=== PATIENT | female | born 1945 | race Caucasian/White ===

== ENCOUNTER 2016-07-18 13:21 | Outpatient (RCR) | payer MEDICARE, MEDICAID ==
--- OUTSIDE RECORDS SUMMARY | 2016-04-24 10:22 | XMS REPORT | Continuity of Care Document ---
Author Author [facility] Organization [facility] Address Unknown Phone Unavailable Care Team Providers Care Sports Recruiter Name Role Phone Self, Referral PCP Unavailable Source Comments Some departments are not documenting in the electronic medical record. If you do not see the information that you expected, contact Release of Information in the Health Information Management department at [phone] for further assistance in locating additional records.[facility] Active Allergies and Adverse Reactions Allergen Noted Date Severity Reactions Comments Hydrocodone 07/05/2011 ITCHING Pcn 07/05/2011 SEE COMMENTS unknown Current Medications Prescription Sig. Disp. Refills Start End Date Status Date prasugrel (EFFIENT) 10 mg Take 10 mg by mouth Active Tab tablet daily. famotidine (PEPCID) 20 mg Take 20 mg by mouth as Active tablet Needed. PREDNISONE PO Take 1 mg by mouth as Active Needed. Prn for itching LEVOTHYROXINE SODIUM Take 125 mg by mouth Active (SYNTHROID PO) daily. nortriptyline (PAMELOR) Take 10 mg by mouth at Active 10 mg capsule bedtime daily. DULOXETINE HCL (CYMBALTA Take 60 mg by mouth Active PO) daily. metFORMIN (GLUCOPHAGE) Take 500 mg by mouth Active 500 mg tablet twice daily. promethazine (PHENERGAN) Insert or Apply 25 mg to Active 25 mg rectal suppository rectal area as directed every 6 hours as needed. nitroglycerin (NITROSTAT) Place 0.3 mg under tongue Active 0.3 mg tablet every 5 minutes as needed. Active Problems Problem Noted Date Recurrent oral ulcers 07/05/2011 Rhinitis, chronic 07/05/2011 Leukemia chronic 07/05/2011 Social History Tobacco Use Types Packs/Day Years Used Date Former Smoker Quit: 05/08/1992 Smokeless Tobacco: Never Used Last Filed Vital Signs Vital Sign Reading Time Taken Blood Pressure 135/72 07/05/2011 1:55 PM RIBBON WINDER Pulse 99 07/05/2011 1:55 PM RIBBON WINDER Temperature 36.3 C (97.3 F) 07/05/2011 1:55 PM RIBBON WINDER Respiratory Rate - - Height 1.676 m (5' 6") 07/05/2011 1:55 PM RIBBON WINDER Weight 86.637 kg (191 lb) 07/05/2011 1:55 PM RIBBON WINDER Body Mass Index 30.84 07/05/2011 1:55 PM RIBBON WINDER Oxygen Saturation - - Plan of Care Health Maintenance Due Date Last Done Comments Physical (Comprehensive) 1953 Exam Pertussis Vaccine 1957 Tetanus Vaccine 1963 Breast Cancer Screening 1986 Colorectal Cancer 1996 Screening Shingles Vaccine 2006 Osteoporosis Screening 2011 Prevnar/Pneumovax (#1) 2011 Influenza Vaccine 03/08/2016 Results from Last 3 Months Not on file
[2016-04-24 10:55] LABS: BASOPHILS % (AUTO) 0 % (0-10); EOSINOPHILS # (AUTO) 0.2 10^3/uL (0.0-0.3); EOSINOPHILS % (AUTO) 3 % (0-10); LYMPHOCYTES # (AUTO) 3.8 X 10^3 (1.0-4.0); LYMPHOCYTES % (AUTO) 65 % (12-44); MEAN CORPUSCULAR HEMOGLOBIN 33 PG (25-34); MEAN CORPUSCULAR HGB CONC 34 G/DL (32-36); MEAN CORPUSCULAR VOLUME 99 FL (80-99); MEAN PLATELET VOLUME 7.9 FL (7.4-10.4); MONOCYTES # (AUTO) 0.6 X 10^3 (0.0-1.0); MONOCYTES % (AUTO) 10 % (0-12); NEUTROPHILS # (AUTO) 1.2 X 10^3 (1.8-7.8); NEUTROPHILS % (AUTO) 22 % (42-75); PLATELET COUNT 275 10^3/uL (130-400); RED BLOOD COUNT 3.37 10^6/uL (4.35-5.85); RED CELL DISTRIBUTION WIDTH 14.8 % (10.0-14.5); WHITE BLOOD COUNT 5.7 10^3/uL (4.3-11.0)
[2016-04-24 11:23] LABS: ALANINE AMINOTRANSFERASE 14 U/L (0-55); ALBUMIN 3.4 G/DL (3.2-4.5); ANION GAP 9 MMOL/L (5-14); ASPARTATE AMINO TRANSFERASE 12 U/L (5-34); BILIRUBIN,TOTAL 0.5 MG/DL (0.1-1.0); BLOOD UREA NITROGEN 14 MG/DL (7-18); BUN/CREATININE RATIO 19; CALCIUM 8.8 MG/DL (8.5-10.1); CARBON DIOXIDE 29 MMOL/L (21-32); CHLORIDE 102 MMOL/L (98-107); CREATININE SERUM 0.74 MG/DL (0.60-1.30); GFR ESTIMATED > 60; GLUCOSE 117 MG/DL (70-105); POTASSIUM 3.8 MMOL/L (3.6-5.0); SODIUM 140 MMOL/L (135-145); TOTAL PROTEIN 5.5 G/DL (6.4-8.2)
[2016-04-25 01:48] LABS: IMMUNOGLOBULIN IGA 26 mg/dL (71-263); IMMUNOGLOBULIN IGG 907 mg/dL (672-1680)
[2016-04-25 08:10] LABS: IMMUNOGLOBULIN IGM 17 mg/dL (47-209)
[2016-05-22 13:28] LABS: BASOPHILS % (AUTO) 1 % (0-10); EOSINOPHILS # (AUTO) 0.1 10^3/uL (0.0-0.3); EOSINOPHILS % (AUTO) 2 % (0-10); LYMPHOCYTES # (AUTO) 2.8 X 10^3 (1.0-4.0); LYMPHOCYTES % (AUTO) 80 % (12-44); MEAN CORPUSCULAR HEMOGLOBIN 34 PG (25-34); MEAN CORPUSCULAR HGB CONC 34 G/DL (32-36); MEAN CORPUSCULAR VOLUME 100 FL (80-99); MEAN PLATELET VOLUME 7.8 FL (7.4-10.4); MONOCYTES # (AUTO) 0.3 X 10^3 (0.0-1.0); MONOCYTES % (AUTO) 8 % (0-12); NEUTROPHILS # (AUTO) 0.4 X 10^3 (1.8-7.8); NEUTROPHILS % (AUTO) 10 % (42-75); PLATELET COUNT 264 10^3/uL (130-400); RED BLOOD COUNT 2.77 10^6/uL (4.35-5.85); RED CELL DISTRIBUTION WIDTH 16.3 % (10.0-14.5); WHITE BLOOD COUNT 3.6 10^3/uL (4.3-11.0)
[2016-05-22 13:57] LABS: ALANINE AMINOTRANSFERASE 12 U/L (0-55); ALBUMIN 3.1 G/DL (3.2-4.5); ANION GAP 6 MMOL/L (5-14); ASPARTATE AMINO TRANSFERASE 14 U/L (5-34); BILIRUBIN,TOTAL 0.4 MG/DL (0.1-1.0); BLOOD UREA NITROGEN 10 MG/DL (7-18); BUN/CREATININE RATIO 12; CARBON DIOXIDE 28 MMOL/L (21-32); CHLORIDE 102 MMOL/L (98-107); CREATININE SERUM 0.81 MG/DL (0.60-1.30); GFR ESTIMATED > 60; GLUCOSE 175 MG/DL (70-105); POTASSIUM 3.7 MMOL/L (3.6-5.0); SODIUM 136 MMOL/L (135-145); TOTAL PROTEIN 5.9 G/DL (6.4-8.2)
[2016-06-19 13:22] LABS: BASOPHILS % (AUTO) 0 % (0-10); EOSINOPHILS # (AUTO) 0.1 10^3/uL (0.0-0.3); EOSINOPHILS % (AUTO) 2 % (0-10); LYMPHOCYTES # (AUTO) 3.2 X 10^3 (1.0-4.0); LYMPHOCYTES % (AUTO) 67 % (12-44); MEAN CORPUSCULAR HEMOGLOBIN 34 PG (25-34); MEAN CORPUSCULAR HGB CONC 33 G/DL (32-36); MEAN CORPUSCULAR VOLUME 103 FL (80-99); MEAN PLATELET VOLUME 8.1 FL (7.4-10.4); MONOCYTES # (AUTO) 0.4 X 10^3 (0.0-1.0); MONOCYTES % (AUTO) 9 % (0-12); NEUTROPHILS % (AUTO) 21 % (42-75); PLATELET COUNT 249 10^3/uL (130-400); RED BLOOD COUNT 3.12 10^6/uL (4.35-5.85); RED CELL DISTRIBUTION WIDTH 16.9 % (10.0-14.5); WHITE BLOOD COUNT 4.7 10^3/uL (4.3-11.0)
[2016-06-19 13:47] LABS: ALBUMIN 3.6 G/DL (3.2-4.5); BILIRUBIN,TOTAL 0.5 MG/DL (0.1-1.0); CALCIUM 8.2 MG/DL (8.5-10.1); CREATININE SERUM 0.93 MG/DL (0.60-1.30); POTASSIUM 4.3 MMOL/L (3.6-5.0); TOTAL PROTEIN 5.6 G/DL (6.4-8.2)
[2016-06-20 04:04] LABS: IMMUNOGLOBULIN IGA 22 mg/dL (71-263); IMMUNOGLOBULIN IGG 968 mg/dL (672-1680)
[2016-06-20 06:30] LABS: IMMUNOGLOBULIN IGM 13 mg/dL (47-209)
[~2016-07-18 13:21] MED LIST: AC325T PO; AC500T PO; ACET-461 PO; ACETAMINOPHEN 325 MG TABLET/CAPLET (TYLENOL) PO SCH; ACETAMINOPHEN 500 MG TAB (TYLENOL) CANCER CTR ONE; ACID1TAB PO; ACYC-108 PO; ACYC800T PO; ACYCLOVIR 200 MG PO; ALPR0.25 PO; ALPR1TAB7 PO; ALPR2TAB6 PO; ALTEPLASE 2 MG (CATHFLO) CANCER CENTER IV ONE; ASP325T NG; ASP325T PO; ASP325TEC PO; ASP81TEC PO; ASPI-266 PO; ASPI-808 PO; ATOR20TA66 PO; ATOR40TA PO; ATOR40TA70 PO; ATR20T PO; BUPR300T51 PO; CEFD300C3 PO; CETI10TA17 PO; CITA20TA4 PO; CLOP75TA PO; CODE-54 PO; CYCL10TA9 PO; DEXL60CA5 PO; DIPH25TA29 PO; DIPH50CA33 PO; DONE10TA41 PO; DULO30CA PO; DULO60CA58 PO; DULO60CA6 PO; EST45C VG; FAMO20TA5 PO; FLT05NA16 NSEACH; FLUT16SP22 NS; FNT100TD TD; FNT25TD TD; FURO40TA4 PO; HYDR-2890 PO; HYDR-700 PO; IBAN150T5 PO; IBAN150T8 PO; IMMU GLOBULIN,GAMMA (IGG) 100 ML IV SCH; IMMUNE GLOBULIN,GAMMA (IGG) 200 ML IV SCH; INSU100I29 SC; INSU100V5 SQ; IPRA15SP2 NS; IPRA15SP2 NSEACH; IPRA3AMP11 INH; ISM30TCR PO; IVIG 10 GM (PRIVIGEN) CANCER C 100 ML IV SCH; IVIG 20 GM (PRIVIGEN) CANCER C 200 ML IV SCH; LACT1CAP62 PO; LAMO100T PO; LEVE1U SQ; LEVO125T PO; LEVO125T6 PO; LEVO175T5 PO; LINA5TAB PO; LISI10TA2 PO; LISI2.5T PO; LORA1TAB PO; LRZ1T PO; LVT.05T PO; MAGN-47 PO; MECL-106 PO; MEDIHONEY WOUND TOP; MELO-195 PO; METO-272 PO; METO25TA2 PO; MTF500T PO; MTP100TCR PO; NABU750T PO; NFIPRATRNS NS; NITR0.3T6 SL; NITR100C3 PO; NITR12SP6 SL; NITR12SP6 TL; NORT25CA PO; NYST15CR3 TP; OXYB30GE TD; OXYC-12 PO; OXYC-188 PO; PNT40TEC PO; PRAS10TA6 PO; PRD1T PO; PRM25T PO; PROP1TAB77 PO; SCR1T PO; TEMA30CA PO; TEMA30CA6 PO; TRAM-21 PO; TRAM1TAB7 PO; TRAM50TA2 PO; WRF5T PO; [UNRECOGNIZED DRUG - CODE] PO; [UNRECOGNIZED DRUG - OTHER]; [UNRECOGNIZED DRUG - OTHER] OU; diphenhydrAMINE 25 MG TAB (BENADRYL) CANCER CENTER PO ONE; diphenhydrAMINE 25 MG TAB (BENADRYL) PO SCH
[2016-07-18 14:07] LABS: BASOPHILS % (AUTO) 1 % (0-10); EOSINOPHILS # (AUTO) 0.2 10^3/uL (0.0-0.3); EOSINOPHILS % (AUTO) 5 % (0-10); LYMPHOCYTES # (AUTO) 3.1 X 10^3 (1.0-4.0); LYMPHOCYTES % (AUTO) 63 % (12-44); MEAN CORPUSCULAR HEMOGLOBIN 35 PG (25-34); MEAN CORPUSCULAR HGB CONC 34 G/DL (32-36); MEAN CORPUSCULAR VOLUME 102 FL (80-99); MEAN PLATELET VOLUME 7.8 FL (7.4-10.4); MONOCYTES # (AUTO) 0.4 X 10^3 (0.0-1.0); MONOCYTES % (AUTO) 8 % (0-12); NEUTROPHILS # (AUTO) 1.2 X 10^3 (1.8-7.8); NEUTROPHILS % (AUTO) 25 % (42-75); PLATELET COUNT 355 10^3/uL (130-400); RED BLOOD COUNT 3.17 10^6/uL (4.35-5.85); RED CELL DISTRIBUTION WIDTH 15.2 % (10.0-14.5); WHITE BLOOD COUNT 4.9 10^3/uL (4.3-11.0)
[2016-07-18] MEDS ORDERED: diphenhydrAMINE 25 MG TAB (BENADRYL) CANCER CENTER PO ONE (14:20)
[2016-07-18] MEDS ORDERED: ACETAMINOPHEN 325 MG TAB (TYLENOL) CANCER CTR ONE (14:20)
[2016-07-18 14:33] LABS: ALANINE AMINOTRANSFERASE 13 U/L (0-55); ALBUMIN 3.4 G/DL (3.2-4.5); ANION GAP 9 MMOL/L (5-14); ASPARTATE AMINO TRANSFERASE 13 U/L (5-34); BILIRUBIN,TOTAL 0.4 MG/DL (0.1-1.0); BLOOD UREA NITROGEN 11 MG/DL (7-18); BUN/CREATININE RATIO 13; CALCIUM 8.3 MG/DL (8.5-10.1); CARBON DIOXIDE 28 MMOL/L (21-32); CHLORIDE 101 MMOL/L (98-107); CREATININE SERUM 0.88 MG/DL (0.60-1.30); GFR ESTIMATED > 60; GLUCOSE 313 MG/DL (70-105); POTASSIUM 3.4 MMOL/L (3.6-5.0); SODIUM 138 MMOL/L (135-145); TOTAL PROTEIN 5.9 G/DL (6.4-8.2)
[2016-07-19 05:21] LABS: IMMUNOGLOBULIN IGA 25 mg/dL (71-263); IMMUNOGLOBULIN IGG 869 mg/dL (672-1680)
[2016-07-19 07:58] LABS: IMMUNOGLOBULIN IGM 13 mg/dL (47-209)
== END 2016-07-23 | disposition home or self-care (01) ==
LOC: ONC 13:21
PROVIDERS: ATTEND Internal Medicine Hematology & Oncology
DX: D80.1 Nonfamilial hypogammaglobulinemia (principal); C91.90 Lymphoid leukemia, unspecified not having achieved remission; C73 Malignant neoplasm of thyroid gland; E11.9 Type 2 diabetes mellitus without complications; E78.5 Hyperlipidemia, unspecified; Z79.899 Other long term (current) drug therapy
CPT/HCPCS: 36415; 36591; 80053; 82784; 85025; 96365; 96366; 99213

== ENCOUNTER 2016-08-08 01:32 | Inpatient (IN) | payer MEDICARE, MEDICAID ==
[~2016-08-08] VITALS: Ht 172.7 cm; Wt 102.1 kg
[2016-08-08 01:32] VITALS: BP 222/107
[~2016-08-08 01:32] MED LIST changes: -ACETAMINOPHEN 325 MG TABLET/CAPLET (TYLENOL) PO SCH; -ACETAMINOPHEN 500 MG TAB (TYLENOL) CANCER CTR ONE; -ALTEPLASE 2 MG (CATHFLO) CANCER CENTER IV ONE; -IMMU GLOBULIN,GAMMA (IGG) 100 ML IV SCH; -IMMUNE GLOBULIN,GAMMA (IGG) 200 ML IV SCH; -IVIG 10 GM (PRIVIGEN) CANCER C 100 ML IV SCH; -IVIG 20 GM (PRIVIGEN) CANCER C 200 ML IV SCH; -diphenhydrAMINE 25 MG TAB (BENADRYL) CANCER CENTER PO ONE; -diphenhydrAMINE 25 MG TAB (BENADRYL) PO SCH
--- OUTSIDE RECORDS SUMMARY | 2016-08-08 01:37 | XMS REPORT | Continuity of Care Document ---
Author Author [facility] Organization [facility] Address Unknown Phone Unavailable Care Team Providers Care Director Of Product Marketing Name Role Phone Self, Referral PCP Unavailable Source Comments Some departments are not documenting in the electronic medical record. If you do not see the information that you expected, contact Release of Information in the Health Information Management department at [phone] for further assistance in locating additional records.[facility] Active Allergies and Adverse Reactions Allergen Noted [...] Taken Blood Pressure 135/72 07/05/2011 1:55 PM NECKTIE CENTRALIZING MACHINE OPERATOR Pulse 99 07/05/2011 1:55 PM NECKTIE CENTRALIZING MACHINE OPERATOR Temperature 36.3 C (97.3 F) 07/05/2011 1:55 PM NECKTIE CENTRALIZING MACHINE OPERATOR Respiratory Rate - - Height 1.676 m (5' 6") 07/05/2011 1:55 PM NECKTIE CENTRALIZING MACHINE OPERATOR Weight 86.637 kg (191 lb) 07/05/2011 1:55 PM NECKTIE CENTRALIZING MACHINE OPERATOR Body Mass Index 30.84 07/05/2011 1:55 PM NECKTIE CENTRALIZING MACHINE OPERATOR Oxygen Saturation - - Plan of Care Health Maintenance Due Date Last Done Comments Physical (Comprehensive) 1953 Exam Pertussis Vaccine 1957 Tetanus Vaccine 1963 Breast Cancer Screening 1986 Colorectal Cancer 1996 Screening Shingles Vaccine 2006 Osteoporosis Screening 2011 Prevnar/Pneumovax (#1) 2011 Influenza Vaccine 03/08/2016 Results from Last 3 Months Not on file
[2016-08-08] MEDS ORDERED: LABETALOL HCL 20 MG/4 ML VIAL ONE (01:41)
[2016-08-08 01:45] VITALS: BP 222/96
[2016-08-08] MEDS ORDERED: LABETALOL HCL 20 MG/4 ML VIAL IV ONE (01:45)
[2016-08-08 01:58] LABS: BASOPHILS # (AUTO) 0.1 10^3/uL (0.0-0.1); BASOPHILS % (AUTO) 0 % (0-10); EOSINOPHILS # (AUTO) 0.2 10^3/uL (0.0-0.3); EOSINOPHILS % (AUTO) 1 % (0-10); LYMPHOCYTES # (AUTO) 6.6 X 10^3 (1.0-4.0); LYMPHOCYTES % (AUTO) 40 % (12-44); MEAN CORPUSCULAR HEMOGLOBIN 35 PG (25-34); MEAN CORPUSCULAR HGB CONC 35 G/DL (32-36); MEAN CORPUSCULAR VOLUME 101 FL (80-99); MONOCYTES % (AUTO) 6 % (0-12); NEUTROPHILS # (AUTO) 8.5 X 10^3 (1.8-7.8); NEUTROPHILS % (AUTO) 52 % (42-75); PLATELET COUNT 392 10^3/uL (130-400); RED BLOOD COUNT 3.48 10^6/uL (4.35-5.85); RED CELL DISTRIBUTION WIDTH 14.4 % (10.0-14.5); WHITE BLOOD COUNT 16.3 10^3/uL (4.3-11.0)
[2016-08-08 02:00] VITALS: BP 187/87
[2016-08-08 02:10] LABS: PROTHROMBIN TIME PATIENT 13.3 SEC (12.2-14.7)
[2016-08-08 02:15] VITALS: BP 185/81
[2016-08-08 02:20] LABS: ALANINE AMINOTRANSFERASE 15 U/L (0-55); ALBUMIN 3.7 G/DL (3.2-4.5); ANION GAP 12 MMOL/L (5-14); ASPARTATE AMINO TRANSFERASE 19 U/L (5-34); BILIRUBIN,TOTAL 0.5 MG/DL (0.1-1.0); BLOOD UREA NITROGEN 10 MG/DL (7-18); BUN/CREATININE RATIO 11; CALCIUM 8.7 MG/DL (8.5-10.1); CARBON DIOXIDE 24 MMOL/L (21-32); CHLORIDE 102 MMOL/L (98-107); CREATININE SERUM 0.93 MG/DL (0.60-1.30); GFR ESTIMATED 60; GLUCOSE 274 MG/DL (70-105); MAGNESIUM 2.2 MG/DL (1.8-2.4); POTASSIUM 3.6 MMOL/L (3.6-5.0); SODIUM 138 MMOL/L (135-145); TOTAL PROTEIN 6.1 G/DL (6.4-8.2)
[2016-08-08 02:27] LABS: MYOGLOBIN SERUM 45.7 NG/ML (10.0-92.0)
[2016-08-08 02:31] LABS: BAND NEUTROPHILS 4 %; NEUTROPHILS % (MANUAL) 54 %
[2016-08-08 02:32] LABS: EOSINOPHILS % (MANUAL) 1 %; LYMPHOCYTES % (MANUAL) 36 %
[2016-08-08 02:35] VITALS: BP 192/85
[2016-08-08 02:40] VITALS: BP 192/85
[2016-08-08] MEDS ORDERED: PROMETHAZINE INJ 25 MG/ML (PHENERGAN) AMP IV PRN (03:15)
[2016-08-08] MEDS ORDERED: BISACODYL 10 MG SUPP (DULCOLAX) PR PRN (03:15)
[2016-08-08] MEDS ORDERED: SALIVA STIMULANT MOUTH SPRAY (BIOTENE) 1.5 OZ MM PRN (03:15)
[2016-08-08] MEDS ORDERED: ONDANSETRON 4 MG/2 ML (SDV) Z0FRAN IV PRN (03:15)
[2016-08-08] MEDS ORDERED: RT-ALBUTEROL/IPRATROPIUM 3 ML (DUONEB) VIAL INH PRN (03:15)
[2016-08-08] MEDS ORDERED: GLYCOPYRROLATE 0.2 MG/ML (ROBINUL) 2 ML VIAL IV PRN (03:15)
[2016-08-08] MEDS ORDERED: ATROPINE 1% OPHTHALMIC SOLN 2 ML SL PRN (03:15)
[2016-08-08] MEDS ORDERED: ACETAMINOPHEN 650 MG SUPP (TYLENOL) PR PRN (03:15)
[2016-08-08] MEDS ORDERED: LORazepam ORAL CONCENTRATE 2 MG/ML 30 ML (ATIVAN) PO PRN (03:15)
[2016-08-08] MEDS: LORazepam INJ 2 MG/ML (ATIVAN) VIAL IV PRN ×4 (03:35→13:39)
--- NOTE | 2016-08-08 06:06 | ED General ---
General Chief Complaint: Neuro-Stroke Like Symptoms Stated Complaint: LARGE INTROCRANIAL BLEED;UNCONTROLLED HTN Nursing Triage Note: Arrival per Cr [facility] EMS: [facility] ([facility]). Pt was awake at midnight severe vazquez and rec'd scheduled [place] meds and a [place]. Found unresponsive laying over to right side of bed with emesis on floor. Pt is unresponsive. Prior CVA with left sided deficits. Pt is hypertensive 237/101 per [facility]. DNR paperwork provided on transport Nursing Sepsis Screen: No Definite Risk Source of Information: EMS, Old Records (ALL [facility] IS FROM OLD RECORD) Exam Limitations: Other (PT IS UNRESPONSIVE) History of Present Illness Time Seen by Provider: 01:30 Initial Comments PT ARRIVES VIA EMS FROM [facility] ( [facility]) PER EMS, ALF STAFF REPORTED THAT PT WOKE UP AT MIDNIGHT WITH A SEVERE HEADACHE, AND STAFF GAVE PT CLONAZEPAM, HYDROCODONE, TEMAZEPAM AND ALBUTEROL INHALER AN HOUR LATER, STAFF FOUND PT TO BE UNRESPONSIVE, LAYING OVER RIGHT SIDE OF BED WITH EMESIS ON THE FLOOR PT WAS FOUND TO HAVE BP ELEVATED AT 237/101 AT THAT TIME NO OTHER INFORMATION IS OBTAINABLE AT THIS TIME PT HAS HAD A PRIOR STROKE WITH LEFT SIDE WEAKNESS PT IS DNR/DNI PCP: DR. SPRAGUE Allergies and Home Medications Allergies Coded Allergies: morphine (Verified Allergy, Intermediate, MOUTH SORES, 11/01/14) oxycodone (Verified Allergy, Mild, MOUTH SORES, 11/01/14) Home Medications Acetaminophen 500 Mg Tablet 1,000 MG PO Q6H PRN PRN PAIN (Reported) TAKES 2 (500MG) TABLETS Aspirin 325 Mg Tablet 325 MG PO DAILY (Reported) Atorvastatin Calcium 40 Mg Tablet #30 40 MG PO DAILY (Reported) Bupropion HCl 300 Mg Tab.er.24h #30 300 MG PO DAILY (Reported) Duloxetine HCl 60 Mg Capsule.dr 60 MG PO HS (Reported) Fluticasone Propionate 16 Gm Naspr 2 SPRAYS NS BID (Reported) Furosemide 40 Mg Tablet #30 40 MG PO DAILY (Reported) Hydrocodone Bit/Acetaminophen 1 Each Tablet 1 TAB PO Q8H PRN PRN PAIN (Reported ) Ibandronate Sodium 150 Mg Tablet 150 MG PO 1ST OF THE MONTH (Reported) Insulin Detemir 100 Unit/1 Ml Insuln.pen 15 UNITS SC 1100, 2300 (Reported) Ipratropium [place] 15 Ml [place] 1 SPRAY NS BID PRN PRN CONGESTION (Reported) Lactobacillus Acidophilus 1 Each Capsule 1 CAP PO TID (Reported) Lamotrigine 100 Mg Tablet #60 100 MG PO BID (Reported) Levothyroxine Sodium 175 Mcg Tablet #30 175 MCG PO DAILY (Reported) Lorazepam 1 Mg Tab 1 MG PO HS (Reported) Meclizine HCl 25 Mg Tablet #30 25 MG PO 3-4TIMES DAILY PRN PRN DIZZINESS ( Reported) Metoprolol Succinate 50 Mg Tab.er.24h #30 50 MG PO DAILY (Reported) Nitroglycerin 12 Gm [place] SL UD PRN PRN CHEST PAIN (Reported) 1-2 SPRAYS UNDER TONGUE EVERY 5 MINUTES X 3 DOSES NEEDED FOR CHEST PAIN Constitutional: other (UNABLE TO OBTAIN FROM PT) Past Cjgsrzg-Bkojmh-Tatcsx Hx Patient Social History Alcohol Use: Denies Use Recreational Drug Use: No Smoking Status: Unknown if Ever Smoked Former Smoker/When Quit: Jul 08, 1991 Recent Foreign Travel: No Contact w/Someone Who Travel: No Recent Infectious Disease Expo: No Recent Hopitalizations: No Physical Abuse Screen: No (Patient unresponsive -- No evidence observed) Sexual Abuse: No Immunizations Up To Date Tetanus Booster (TDap): Unknown PED Vaccines UTD: Yes Date of Pneumonia Vaccine: Feb 18, 2015 Date of Influenza Vaccine: Mar 24, 2014 Seasonal Allergies Seasonal Allergies: No Surgeries HX Surgeries: Yes (TKR X3, UD, R FOOT, L ARM FX X3, FEMUR FX/ORIF, HAND FX/ORIF ; CARDIAC STENTS; PORT RIGHT CHEST) Surgeries: Cardiac, Coronary Stent, Eye Surgery, Gallbladder, Orthopedic, Thyroidectomy, Vascular Surgery Respiratory Hx Respiratory Disorders: No Cardiovascular Hx Cardiac Disorders: Yes (8 STENTS, 3 heart attacks) Cardiac Disorders: Coronary Artery Disease, Heart Attack, High Cholesterol, Hypertension, Peripheral Vascular, Syncope Neurological Hx Neurological Disorders: Yes (STROKE X3 WITH LEFT SIDE WEAKNESS, New onset seizures 02/14/15) Neurological Disorders: Stroke Reproductive System Hx Reproductive Disorders: No Sexually Transmitted Disease: No HIV/AIDS: No Female Reproductive Disorders: Denies SANITARY PLUMBER History: Menopausal Genitourinary Hx Genitourinary Disorders: No Gastrointestinal Hx Gastrointestinal Disorders: Yes Gastrointestinal Disorders: Irritable Bowel Musculoskeletal Hx Musculoskeletal Disorders: Yes (LEFT SHOULDER IMPINGEMENT, HERNIATED DISCS, MULTIPLE FRACTURES) Musculoskeletal Disorders: Degenerate Disk Disease, Osteoporosis, Arthritis, Fibromyalgia, Back Injury, Chronic Back Pain, Fractures Endocrine Hx Endocrine Disorders: Yes Endocrine Disorders: Diabetes, Insulin dep, Hypothyroidsim HEENT HX ENT Disorders: Yes ("GOING DEAF IN LEFT EAR" CATARACTS REMOVED) HEENT Disorders: Cataract Loss of Vision: Denies Hearing Impairment: Deaf Cancer Hx Cancer: Yes (Leukemia (dx. in 2006) Thyroidectomy 2013) Cancer: Leukemia, Thyroid Psychosocial Hx Psychiatric Problems: Yes Behavioral Health Disorders: Sleep Difficulties, Anxiety, Depression Integumentary HX Skin/Integumentary Disorder: Yes (ROSACEA) Blood Transfusions Hx Blood Disorders: Yes (LEUKEMIA) Adverse Reaction to a Blood Tr: No Family Medical History Significant Family History: Heart Disease, Hypertension Family Medial History: Alcoholism 03 FATHER 03 MOTHER Arthritis 03 FATHER 03 MOTHER Asthma 03 FATHER Completed stroke 03 MOTHER Congestive heart failure 03 FATHER Deafness or hearing loss 03 FATHER Family history: Arthritis 03 FATHER Family history: Cardiovascular disease 03 FATHER Family history: Hypertension 03 FATHER 03 MOTHER Hearing loss 03 FATHER Hypertension 03 FATHER 03 MOTHER Myocardial infarction 03 FATHER Myocardial infarction 03 FATHER Osteoporosis 03 FATHER 03 MOTHER Psychosocial problem G8 BROTHER (DONT KNOW ANY MEDICAL HX ON HER 2 BROTHERS) Respiratory disorder 03 FATHER Visual impairment 03 FATHER 03 MOTHER No Family History of: AIDS Alzheimer's disease Aphasia Cancer of mouth Cardiovascular disease Cataracts Colon cancer Congenital disease Congenital heart disease Cystic fibrosis Dementia Diabetes mellitus Drug abuse Dysphasia Fibrocystic disease of breast Gastroenteritis Glaucoma Hypercholesterolemia Kidney disease Neoplasm Not obtainable due to adoption Parkinson's disease Prostate cancer Seizure disorder Severe allergy Thyroid disease Tuberculosis Visual disorder Physical Exam Vital Signs Vital Sign - Last 12Hours Capillary Refill : Less Than 3 Seconds General Appearance: Obese Severe Distress (PT COMPLETELY UNRESPONSIVE WITH LABORED ABDOMINAL BREATHING, AND UPPER AIRWAY NOISE) HEENT: Other (PUPILS 3 MM/EQUAL BUT NON-REACTIVE) Neck: No JVD Respiratory: Accessory Muscle Use (LABORED ABDOMINAL BREATHING ) Cardiovascular: Regular Rate, Rhythm Gastrointestinal: Soft Extremity: No Pedal Edema Slow Capillary Refill (NO PALPABLE PULSES IN FEET) Neurologic/Psychiatric: Other (UNRESPONSIVE/OBTUNDED) Skin: Warm/Dry Progress/Results/Core Measures Results/Orders Lab Results Laboratory Tests Test 08/08/16 01:47 Range/Units Activated Partial Thromboplast Time 30 24-35 SEC Alanine Aminotransferase (ALT/SGPT) 15 0-55 U/L Albumin 3.7 3.2-4.5 G/DL Alkaline Phosphatase 100 40-136 U/L Anion Gap 12 5-14 MMOL/L Aspartate Amino Transf (AST/SGOT) 19 5-34 U/L BUN/Creatinine Ratio 11 Band Neutrophils 4 % Basophils # (Auto) 0.1 0.0-0.1 10^3/uL Basophils (%) (Auto) 0 0-10 % Blood Morphology Comment NORMAL Blood Urea Nitrogen 10 7-18 MG/DL Calcium Level 8.7 8.5-10.1 MG/DL Carbon Dioxide Level 24 21-32 MMOL/L Chloride Level 102 98-107 MMOL/L Creatinine 0.93 0.60-1.30 MG/DL Eosinophils # (Auto) 0.2 0.0-0.3 10^3/uL Eosinophils % (Manual) 1 % Eosinophils (%) (Auto) 1 0-10 % Estimat Glomerular Filtration Rate 60 Glucose Level 274 H 70-105 MG/DL Hematocrit 35 35-52 % Hemoglobin 12.2 11.5-16.0 G/DL INR Comment 1.0 0.8-1.4 Lymphocytes # (Auto) 6.6 H 1.0-4.0 X 10^3 Lymphocytes % (Manual) 36 % Lymphocytes (%) (Auto) 40 12-44 % Magnesium Level 2.2 1.8-2.4 MG/DL Mean Corpuscular Hemoglobin 35 H 25-34 PG Mean Corpuscular Hemoglobin Concent 35 32-36 G/DL Mean Corpuscular Volume 101 H 80-99 FL Mean Platelet Volume 8.0 7.4-10.4 FL Monocytes # (Auto) 1.0 0.0-1.0 X 10^3 Monocytes % (Manual) 5 % Monocytes (%) (Auto) 6 0-12 % Myoglobin 45.7 10.0-92.0 NG/ML Neutrophils # (Auto) 8.5 H 1.8-7.8 X 10^3 Neutrophils % (Manual) 54 % Neutrophils (%) (Auto) 52 42-75 % Platelet Count 392 130-400 10^3/uL Potassium Level 3.6 3.6-5.0 MMOL/L Prothrombin Time 13.3 12.2-14.7 SEC Red Blood Count 3.48 L 4.35-5.85 10^6/uL Red Cell Distribution Width 14.4 10.0-14.5 % Sodium Level 138 135-145 MMOL/L Total Bilirubin 0.5 0.1-1.0 MG/DL Total Protein 6.1 L 6.4-8.2 G/DL Troponin I < 0.30 <0.30 NG/ML White Blood Count 16.3 H 4.3-11.0 10^3/uL My Orders Orders-LALY DALAL DO O2 (08/08/16 01:34) Ekg Tracing (08/08/16 01:34) Cbc With Automated Diff (08/08/16 01:34) Comprehensive Metabolic Panel (08/08/16 01:34) Protime With Inr (08/08/16 01:34) Partial Thromboplastin Time (08/08/16 01:34) Magnesium (08/08/16 01:34) Cardiac Profile 1 (08/08/16 01:34) Cardiac Profile 2 (08/08/16 07:34) Myoglobin Serum (08/08/16 01:34) Ct Head Wo (08/08/16 01:34) Monitor-Rhythm Ecg Trace Only (08/08/16 01:34) Labetalol Injection (Normodyne Injection (08/08/16 01:45) Labetalol Injection (Normodyne Injection (08/08/16 01:41) Catheter(Urinary) Insert & Ass 03,15 (08/08/16 01:49) Manual Differential (08/08/16 01:47) Vital Signs/I&O Vital Sign - Last 12Hours 08/08/16 08/08/16 08/08/16 08/08/16 01:32 01:32 01:32 01:45 Temp 96.0 Pulse 82 82 82 Resp 14 14 14 B/P 222/107 222/107 222/96 Pulse Ox 91 91 91 91 O2 Delivery Room Air Nasal Cannula O2 Flow Rate 2 2 08/08/16 08/08/16 08/08/16 08/08/16 02:00 02:15 02:35 02:40 Temp 96.0 Pulse 73 72 75 75 Resp 14 17 24 24 B/P 187/87 185/81 192/85 Pulse Ox 96 96 97 97 O2 Flow Rate 2 Blood Pressure Mean: 145 Progress Note : Progress Note BP DOWN WITH LABETALOL Diagnostic Imaging Comments CT HEAD--MASSIVE PARENCHYMAL HEMORRHAGE LEFT BASAL GANGLIA, EXTENSIVE INTRAVENTRICULAR HEMORRHAGE, WITH RIGHT MIDLINE SHIFT OF 5 MM. ADDITIONAL PARENCHYMAL HEMORRHAGE RIGHT CEREBELLAR AREA--WITH EXTENSION INTO 4TH VENTRICLE AND FORAMEN MAGENDIE AND LUSCHKA INTO SUBARACHNOID SPACE AT SKULL BASE AND UPPER CERVICAL SPINE, WITH ADJACENT PARENCHYMAL EDEMA PER [facility] RADIOLOGIST VIA PHONE AT 0150 Reviewed: Reviewed by Me, Discussed w/Radiologist Departure Communication Progress Notes 0140--ATTEMPTED TO CALL PT'S BROTHER, NO ANSWER, LEFT MESSAGE ON MACHINE TO CALL HOSPITAL 0141--SPOKE WITH DR. SPRAGUE, WILL ADMIT PT ON COMFORT CARE 0158--CALLED OTHER CONTACT NUMBER OF A FRIEND OF PT, NO ANSWER, LEFT MESSAGE ON MACHINE TO CALL HOSPITAL. Impression Impression: Primary Impression: SEVERE INTRACRANIAL HEMORRHAGE Additional Impression: Severe uncontrolled hypertension Disposition: ADMITTED INPATIENT Condition: Critical Decision to Admit Reason: Admit from ER (General) Decision to Admit/Date: Aug 08, 2016 Time/Decision to Admit Time: 01:40 Departure-Patient Inst. Referrals: ELEANOR SPRAGUE DO (PCP) Primary Care Physician LALY DALAL DO Aug 08, 2016 06:06
--- NOTE | 2016-08-08 07:24 | Diagnostic Imaging Report ---
PROCEDURE: CT head without contrast. TECHNIQUE: Multiple contiguous axial images were obtained through the brain without the use of intravenous contrast. INDICATION: Unresponsive. EXAMINATION: CT brain without contrast 08/08/2016 Comparison made to 03/13/2016. FINDINGS: There is a large left intraperitoneal hemorrhage within the left basal ganglia and extending anteriorly to involve portions of the inferior frontal parietal lobe. Mild surrounding edema is noted. Hemorrhage extends into the third ventricle and into bilateral lateral ventricles left greater than right. There is hemorrhage also extending into the fourth ventricle. There is a deviation and midline shift towards the right. The septum pellucidum is extended towards the right by approximately 5 mm. There is a mild/moderate hydrocephalus left worse than right. There is an additional intraparenchymal hemorrhage within the right aspect of the cerebellum. This measures approximately 5.1 cm in greatest dimension and is somewhat heterogeneous in appearance. Surrounding edema is noted. This extends across the midline towards the left. Mass effect is seen along the right cerebellar region. There is likely mass effect extending along the midbrain. Although these findings could represent hemorrhagic infarcts underlying mass in the cerebellum especially not excluded. The osseous structures demonstrate no evidence for acute disease. Paranasal sinuses and mastoid air cells are fairly clear. IMPRESSION: 1. Intraparenchymal and intraventricular hemorrhages as discussed above with secondary mass effect and mild midline shift. Findings agree with the preliminary report. Dictated by: Dictated on workstation # [id number]
--- NOTE | 2016-08-08 07:47 | History & Physicial ---
History of Present Illness History of Present Illness Reason for visit/HPI patient in coma and does not respond. Patient's pupils fixed. Patient does not respond to pain. Patient is a resident of [facility] now name [facility]. Nurse called me stating that patient's blood pressure was 237/101 and patient vomited and unresponsive. Patient has a history of a previous stroke on the left side. 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 Patient diabetic. Patient had a CAT scan of head showing intraparenchymal and intraventricular hemorrhage. Patient had care home was found unresponsive in bed with emesis. Emergency room try to get in touch with brother and friend without success. We'll try again this morning and get back in touch with care home to get numbers. Patient comfort care. Patient DO NOT RESUSCITATE and DO NOT INTUBATE Date of Admission Aug 08, 2016 at 01:40 I consulted on this patient on 08/08/16 07:42 Attending Physician Taj Sprague DO Admitting Physician Taj Sprague DO Consult Allergies and Home Medications Allergies Coded Allergies: morphine (Verified Allergy, Intermediate, MOUTH SORES, 11/01/14) oxycodone (Verified Allergy, Mild, MOUTH SORES, 11/01/14) Home Medications Acetaminophen 500 Mg Tablet 1,000 MG PO Q6H PRN PRN PAIN (Reported) TAKES 2 (500MG) TABLETS Aspirin 325 Mg Tablet 325 MG PO DAILY (Reported) Atorvastatin Calcium 40 Mg Tablet #30 40 MG PO DAILY (Reported) Bupropion HCl 300 Mg Tab.er.24h #30 300 MG PO DAILY (Reported) Duloxetine HCl 60 Mg Capsule.dr 60 MG PO HS (Reported) Fluticasone Propionate 16 Gm Naspr 2 SPRAYS NS BID (Reported) Furosemide 40 Mg Tablet #30 40 MG PO DAILY (Reported) Hydrocodone Bit/Acetaminophen 1 Each Tablet 1 TAB PO Q8H PRN PRN PAIN (Reported ) Ibandronate Sodium 150 Mg Tablet 150 MG PO 1ST OF THE MONTH (Reported) Insulin Detemir 100 Unit/1 Ml Insuln.pen 15 UNITS SC 1100, 2300 (Reported) Ipratropium [place] 15 Ml [place] 1 SPRAY NS BID PRN PRN CONGESTION (Reported) Lactobacillus Acidophilus 1 Each Capsule 1 CAP PO TID (Reported) Lamotrigine 100 Mg Tablet #60 100 MG PO BID (Reported) Levothyroxine Sodium 175 Mcg Tablet #30 175 MCG PO DAILY (Reported) Lorazepam 1 Mg Tab 1 MG PO HS (Reported) Meclizine HCl 25 Mg Tablet #30 25 MG PO 3-4TIMES DAILY PRN PRN DIZZINESS ( Reported) Metoprolol Succinate 50 Mg Tab.er.24h #30 50 MG PO DAILY (Reported) Nitroglycerin 12 Gm [place] SL UD PRN PRN CHEST PAIN (Reported) 1-2 SPRAYS UNDER TONGUE EVERY 5 MINUTES X 3 DOSES NEEDED FOR CHEST PAIN Past Vlrtmnh-Mjoism-Ftmdov Hx Patient Social History Employed/Student: unemployed Alcohol Use: Denies Use Recreational Drug Use: No Smoking Status: Unknown if Ever Smoked Former smoker/When Quit: Jul 08, 1991 Physical Abuse Screen: No (Patient unresponsive -- No evidence observed) Sexual Abuse: No Recent Foreign Travel: No Contact w/other who traveled: No Recent Hopitalizations: No Recent Infectious Disease Expo: No Immunizations Up To Date Tetanus Booster (TDap): Unknown Date of Pneumonia Vaccine: Feb 18, 2015 Date of Influenza Vaccine: Mar 24, 2014 Seasonal Allergies Seasonal Allergies: No Surgeries HX Surgeries: Yes (TKR X3, UD, R FOOT, L ARM FX X3, FEMUR FX/ORIF, HAND FX/ORIF ; CARDIAC STENTS; PORT RIGHT CHEST) Surgeries: Cardiac, Coronary Stent, Eye Surgery, Gallbladder, Orthopedic, Thyroidectomy, Vascular Surgery Respiratory Hx Respiratory Disorders: No Cardiovascular Hx Cardiovascular Disorders: Yes (8 STENTS, 3 heart attacks) Cardiac Disorders: Coronary Artery Disease, Heart Attack, High Cholesterol, Hypertension, Peripheral Vascular, Syncope Neurological Hx Neurological Disorders: Yes (STROKE X3 WITH LEFT SIDE WEAKNESS, New onset seizures 02/14/15) Neurological Disorders: Stroke Reproductive System Hx Reproductive Disorders: No Sexually Transmitted Disease: No HIV/AIDS: No Female Reproductive Disorders: Denies Genitourinary Hx Genitourinary Disorders: No Gastrointestinal Hx Gastrointestinal Disorders: Yes Gastrointestinal Disorders: Irritable Bowel Musculoskeletal Hx Musculoskeletal Disorders: Yes (LEFT SHOULDER IMPINGEMENT, HERNIATED DISCS, MULTIPLE FRACTURES) Musculoskeletal Disorders: Degenerate Disk Disease, Osteoporosis, Arthritis, Fibromyalgia, Back Injury, Chronic Back Pain, Fractures Endocrine Hx Endocrine Disorders: Yes Endocrine Disorders: Diabetes, Insulin dep, Hypothyroidsim HEENT HX ENT Disorders: Yes ("GOING DEAF IN LEFT EAR" CATARACTS REMOVED) HEENT Disorders: Cataract Loss of Vision: Denies Hearing Impairment: Deaf Cancer Hx Cancer: Yes (Leukemia (dx. in 2007) Thyroidectomy 2014) Cancer: Leukemia, Thyroid Psychosocial Hx Psychiatric Problems: Yes Behavioral Health Disorders: Sleep Difficulties, Anxiety, Depression Integumentary HX Skin/Integumentary Disorder: Yes (ROSACEA) Blood Transfusions Hx Blood Disorders: Yes (LEUKEMIA) Adverse Reaction to a Blood Tr: No Family Medical History Significant Family History: Heart Disease, Hypertension Family Hx: Alcoholism 03 FATHER 03 MOTHER Arthritis 03 FATHER 03 MOTHER Asthma 03 FATHER Completed stroke 03 MOTHER Congestive heart failure 03 FATHER Deafness or hearing loss 03 FATHER Family history: Arthritis 03 FATHER Family history: Cardiovascular disease 03 FATHER Family history: Hypertension 03 FATHER 03 MOTHER Hearing loss 03 FATHER Hypertension 03 FATHER 03 MOTHER Myocardial infarction 03 FATHER Myocardial infarction 03 FATHER Osteoporosis 03 FATHER 03 MOTHER Psychosocial problem G8 BROTHER (DONT KNOW ANY MEDICAL HX ON HER 2 BROTHERS) Respiratory disorder 03 FATHER Visual impairment 03 FATHER 03 MOTHER No Family History of: AIDS Alzheimer's disease Aphasia Cancer of mouth Cardiovascular disease Cataracts Colon cancer Congenital disease Congenital heart disease Cystic fibrosis Dementia Diabetes mellitus Drug abuse Dysphasia Fibrocystic disease of breast Gastroenteritis Glaucoma Hypercholesterolemia Kidney disease Neoplasm Not obtainable due to adoption Parkinson's disease Prostate cancer Seizure disorder Severe allergy Thyroid disease Tuberculosis Visual disorder Constitutional: other (nonresponsive, coma,) EENTM: other (pupils fixed) Respiratory: other (breathing differently) Cardiovascular: no symptoms reported Gastrointestinal: no symptoms reported Physical Exam Vital Signs Vital Sign - Last 12Hours Capillary Refill : Less Than 3 Seconds General Appearance: Other (patient didn't coma nonresponsive) Eyes: Bilateral Eye Other (pupils fixed) Neck: Non Tender Respiratory: Other (different breath sounds) Cardiovascular: Regular Rate, Rhythm Gastrointestinal: Non Tender Soft Assessment/Plan Assessment and Plan severe hemorrhagic stroke. Vascular demented area. 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 Hypertension. malignant. Patient comfort care To try to reach family this morning again Clinical Quality Measures DVT/VTE Risk/Contraindication: Risk Factor Score Per Nursin RFS Level Per Nursing on Admit: 4+=Very High Stroke: Date of last known well: Aug 08, 2016 TAJ SPRAGUE DO Aug 08, 2016 07:47
[2016-08-08] MEDS ORDERED: POLY17PO6 PO (08:54)
[2016-08-08] MEDS ORDERED: FOLI1TAB24 PO (08:54)
[2016-08-08] MEDS ORDERED: ASPI-983 PO (08:54)
[2016-08-08] MEDS ORDERED: NITR0.4T SL (08:54)
[2016-08-08] MEDS ORDERED: ISOS30TA3 PO (08:54)
[2016-08-08] MEDS ORDERED: CLOP75TA28 PO (08:54)
[2016-08-08] MEDS ORDERED: RT-ALBUINH IH (08:54)
[2016-08-08] MEDS ORDERED: NYST1POW22 TOP (08:54)
[2016-08-08] MEDS ORDERED: DIPH25TA65 PO (08:54)
[2016-08-08] MEDS ORDERED: POTA10CA43 PO (08:54)
[2016-08-08] MEDS ORDERED: MENT118G TP (08:54)
[2016-08-08] MEDS ORDERED: ATOR20TA66 PO (08:54)
[2016-08-08] MEDS ORDERED: VITA150T PO (08:54)
[2016-08-08] MEDS ORDERED: CLON0.252 PO (08:54)
[2016-08-08] MEDS ORDERED: BUPR100T15 PO (08:54)
[2016-08-08] MEDS ORDERED: MULT-35 PO (08:54)
[2016-08-08] MEDS ORDERED: ONDA4TAB10 PO (08:54)
[2016-08-08] MEDS ORDERED: LAMO150T PO (08:54)
[2016-08-08] MEDS ORDERED: TEMA15CA PO (08:54)
[2016-08-08] MEDS ORDERED: GUAI5SYR PO (08:54)
[2016-08-08] MEDS ORDERED: SCOPOLAMINE 1.5 MG (TRANSDERM-SCOP) PATCH TOP SCH (09:00)
[2016-08-08] MEDS ORDERED: METO-270 PO (09:03)
[2016-08-11] MEDS ORDERED: SCOPOLAMINE PATCH REMOVAL TP SCH (08:59)
--- NOTE | 2016-08-13 07:21 | Discharge Summary ---
Diagnosis/Chief Complaint Date of Admission Aug 08, 2016 at 01:40 Date of Discharge Aug 08, 2016 at 17:05 Admission Diagnosis Admission Diagnosis severe hemorrhagic stroke. Vascular demented area. 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 Hypertension. malignant. Patient comfort care To try to reach family this morning again Discharge Diagnosis nontraumatic intracerebral hemorrhage, multiple localized. Unspecified coma. Hemiplegia. Vascular dementia. Hypertension. Type II diabetes. DO NOT RESUSCITATE. Account for palliative care. Coronary artery disease. Long-term use of insulin. Personal history of malignant neoplasm of thyroid. Personal history of nicotine dependence Reason Hospital Visit patient in coma and does not respond. Patient's pupils fixed. Patient does not respond to pain. Patient is a resident of [facility] now name [facility]. Nurse called me stating that patient's blood pressure was 237/101 and patient vomited and unresponsive. Patient has a history of a previous stroke on the left side. 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 Patient diabetic. Patient had a CAT scan of head showing intraparenchymal and intraventricular hemorrhage. Patient had group home was found unresponsive in bed with emesis. Emergency room try to get in touch with brother and friend without success. We'll try again this morning and get back in touch with group home to get numbers. Patient comfort care. Patient DO NOT RESUSCITATE and DO NOT INTUBATE Discharge Summary Discharge Physical Examination Allergies: Coded Allergies: morphine (Verified Allergy, Intermediate, MOUTH SORES, 11/01/14) oxycodone (Verified Allergy, Mild, MOUTH SORES, 11/01/14) Vitals & I&Os Vital Signs Date Time Temp Pulse Resp B/P Pulse Ox O2 Delivery O2 Flow Rate FiO2 08/08/16 09:00 Nasal Cannula 2.00 08/08/16 02:40 96.0 75 24 97 08/08/16 02:35 192/85 Hospital Course patient put on palliative care. Patient Labs (last 24 hrs) Laboratory Tests 08/08/16 01:47: Activated Partial Thromboplast Time 30, Alanine Aminotransferase (ALT/SGPT) 15, Albumin 3.7, Alkaline Phosphatase 100, Anion Gap 12, Aspartate Amino Transf (AST /SGOT) 19, BUN/Creatinine Ratio 11, Band Neutrophils 4, Basophils # (Auto) 0.1, Basophils (%) (Auto) 0, Blood Morphology Comment NORMAL, Blood Urea Nitrogen 10 , Calcium Level 8.7, Carbon Dioxide Level 24, Chloride Level 102, Creatinine 0.93, Eosinophils # (Auto) 0.2, Eosinophils % (Manual) 1, Eosinophils (%) (Auto ) 1, Estimat Glomerular Filtration Rate 60, Glucose Level 274H, Hematocrit 35, Hemoglobin 12.2, INR Comment 1.0, Lymphocytes # (Auto) 6.6H, Lymphocytes % ( Manual) 36, Lymphocytes (%) (Auto) 40, Magnesium Level 2.2, Mean Corpuscular Hemoglobin 35H, Mean Corpuscular Hemoglobin Concent 35, Mean Corpuscular Volume 101H, Mean Platelet Volume 8.0, Monocytes # (Auto) 1.0, Monocytes % (Manual) 5, Monocytes (%) (Auto) 6, Myoglobin 45.7, Neutrophils # (Auto) 8.5H, Neutrophils % (Manual) 54, Neutrophils (%) (Auto) 52, Platelet Count 392, Potassium Level 3.6, Prothrombin Time 13.3, Red Blood Count 3.48L, Red Cell Distribution Width 14.4, Sodium Level 138, Total Bilirubin 0.5, Total Protein 6.1L, Troponin I < 0.30, White Blood Count 16.3H Laboratory Tests 08/08/16 01:47 Pending Labs Laboratory Tests 08/08/16 01:47: Activated Partial Thromboplast Time 30, Alanine Aminotransferase (ALT/SGPT) 15, Albumin 3.7, Alkaline Phosphatase 100, Anion Gap 12, Aspartate Amino Transf (AST /SGOT) 19, BUN/Creatinine Ratio 11, Band Neutrophils 4, Basophils # (Auto) 0.1, Basophils (%) (Auto) 0, Blood Morphology Comment NORMAL, Blood Urea Nitrogen 10 , Calcium Level 8.7, Carbon Dioxide Level 24, Chloride Level 102, Creatinine 0.93, Eosinophils # (Auto) 0.2, Eosinophils % (Manual) 1, Eosinophils (%) (Auto ) 1, Estimat Glomerular Filtration Rate 60, Glucose Level 274, Hematocrit 35, Hemoglobin 12.2, INR Comment 1.0, Lymphocytes # (Auto) 6.6, Lymphocytes % ( Manual) 36, Lymphocytes (%) (Auto) 40, Magnesium Level 2.2, Mean Corpuscular Hemoglobin 35, Mean Corpuscular Hemoglobin Concent 35, Mean Corpuscular Volume 101, Mean Platelet Volume 8.0, Monocytes # (Auto) 1.0, Monocytes % (Manual) 5, Monocytes (%) (Auto) 6, Myoglobin 45.7, Neutrophils # (Auto) 8.5, Neutrophils % (Manual) 54, Neutrophils (%) (Auto) 52, Platelet Count 392, Potassium Level 3.6 , Prothrombin Time 13.3, Red Blood Count 3.48, Red Cell Distribution Width 14.4 , Sodium Level 138, Total Bilirubin 0.5, Total Protein 6.1, Troponin I < 0.30, White Blood Count 16.3 Radiology Reviewed CAT scan of head intracerebral hemorrhage Discharge Home Medications: Active Scripts Active Reported Metoprolol Succinate 25 Mg Tab.er.24h 25 Mg PO BID Ondansetron HCl 4 Mg Tablet 4 Mg PO Q4H PRN Ventolin Hfa (Albuterol Sulfate) 18 Gm Hfa.aer.ad 2 Puff IH Q8H PRN Temazepam 15 Mg Capsule 15 Mg PO HS Super B Complex (Vitamin B Complex & Vit C No.4) 150 Mg Tablet 150 Mg PO DAILY Guaifenesin Dm Syrup (Guaifenesin/Dextromethorphan) 5 Ml Syrup 10 Ml PO Q4H PRN Potassium Chloride 10 Meq Capsule.er 10 Meq PO BID Clopidogrel (Clopidogrel Bisulfate) 75 Mg Tablet 75 Mg PO DAILY Nystatin 1 Each Powder.ea. TOP 2-3 TIMES DAILY PRN Nitrostat (Nitroglycerin) 0.4 Mg Tab.subl 0.4 Mg SL UD PRN Daily Multiple Vitamin (Multivitamin) 1 Each Tablet 1 Tab PO DAILY Miralax (Polyethylene Glycol 3350) 17 Gm Powd.pack 17 Gm PO DAILY PRN Lamotrigine 150 Mg Tablet 150 Mg PO BID Isosorbide Mononitrate ER (Isosorbide Mononitrate) 30 Mg Tab.er.24h 30 Mg PO DAILY Folic Acid 1 Mg Tablet 1 Mg PO DAILY Clonazepam 0.25 Mg Tab.rapdis 0.25 Mg PO Q8H PRN Bupropion HCl 100 Mg Tablet 100 Mg PO DAILY Biofreeze (Menthol) 118 Ml Gel..ml. TP PRN PRN Benadryl Allergy (Diphenhydramine HCl) 25 Mg Tablet 25 Mg PO Q6H PRN Aspirin EC (Aspirin) 81 Mg Tablet.dr 81 Mg PO DAILY Atorvastatin Calcium 20 Mg Tablet 20 Mg PO HS Furosemide 40 Mg Tablet 40 Mg PO DAILY Meclizine HCl 25 Mg Tablet 25 Mg PO TID Levothyroxine Sodium 175 Mcg Tablet 175 Mcg PO DAILY Pain Relief Extra Strength (Acetaminophen) 500 Mg Tablet 1,000 Mg PO Q6H PRN TAKES 2 (500MG) TABLETS Probiotic (Lactobacillus Acidophilus) 1 Each Capsule 1 Cap PO DAILY Flonase Nasal [place] (Fluticasone Propionate) 16 Gm Naspr 1 [place] NS Q12H PRN Duloxetine HCl 60 Mg Capsule.dr 60 Mg PO BID Hydrocodon-Acetaminophn 10-325 (Hydrocodone Bit/Acetaminophen) 1 Each Tablet 1 Tab PO Q6H PRN Ipratropium [place] 15 Ml [place] 2 Sprays NS Q8H PRN Instructions to patient/family Please see electonic discharge instructions given to patient. Clinical Quality Measures DVT/VTE Risk/Contraindication: Risk Factor Score Per Nursin RFS Level Per Nursing on Admit: 4+=Very High Stroke: Date of last known well: Aug 08, 2016 ELEANOR SPRAGUE DO Aug 13, 2016 07:21
== END 2016-08-08 17:05 | disposition expired | DRG 65 ==
LOC: EDUNIT# 01:32 → ER 01:34 → 4TH 01:40
PROVIDERS: ADMIT Family Medicine; ATTEND Family Medicine
DX: I61.6 Nontraumatic intracerebral hemorrhage, multiple localized (principal); R40.20 Unspecified coma; G81.94 Hemiplegia, unspecified affecting left nondominant side; C95.90 Leukemia, unspecified not having achieved remission; F01.50 Vascular dementia, unspecified severity, without behavioral disturbance, psychotic disturbance, mood disturbance, and anxiety; I10 Essential (primary) hypertension; E11.9 Type 2 diabetes mellitus without complications; Z66 Do not resuscitate; Z51.5 Encounter for palliative care; I25.10 Atherosclerotic heart disease of native coronary artery without angina pectoris; I25.2 Old myocardial infarction; E89.0 Postprocedural hypothyroidism; Z79.4 Long term (current) use of insulin; Z95.5 Presence of coronary angioplasty implant and graft; Z85.850 Personal history of malignant neoplasm of thyroid; Z87.891 Personal history of nicotine dependence
CPT/HCPCS: 36415; 70450; 80053; 83735; 83874; 84484; 85007; 85027; 85610; 85730; 93041; 96374